=== PATIENT | female | born 1930 | race Caucasian/White ===

== ENCOUNTER 2018-12-01 14:21 | Emergency (ER) | payer MEDICARE ==
[~2018-12-01] VITALS: Ht 160 cm; Wt 46.3 kg
--- NOTE | 2018-12-01 14:41 | RAD ---
CT CODE STROKE HEAD WO Clinical indications: Altered mental status. Code stroke. COMPARISON: November 14, 2009 Technique: Noncontrast axial cross sectional scanning of the head was performed. PQRS compliance Statement One or more of the following individualized dose reduction techniques were utilized for this study: 1. Automated exposure control 2. Adjustment of the mA and/or kV according to patient size 3. Use of iterative reconstruction technique Findings: No acute intracranial hemorrhage or midline shift or mass-effect or hydrocephalus or extra-axial fluid collection is seen. No new focal hypodense area or sulci effacement is seen to indicate an acute infarct or edema radiographically. No skull fracture or pneumocephalus is seen. No opacification of the mastoid sinuses or the paranasal sinuses is seen. The maxillary sinuses are not completely seen in this study. Impression: No acute intracranial abnormality is seen. Note-This critical result was called to Dr. Miguel Neves in the emergency room at 2:37 PM on December 01, 2018. Electronically signed by: Axel Alvarez MD (12/01/2018 2:38 PM) [facility]
--- NOTE | 2018-12-01 15:04 | PHYS DOC ---
Adult General Chief Complaint Chief Complaint: ALTERED MENTAL STATUS HPI HPI 88-year-old female presents via EMS with altered mental status. Family tells me that the patient was acting normally this morning. She was on the phone talking to a [place] member in [place] when she began to tell the family members she wasn't feeling that well. She mentioned a couple times that she wasn't feeling very good. The family member called her brother who lives near the patient. He came to check on her and all of her vital signs were normal. He helped her get to bed. The patient's daughter came and found that she was not responding to commands. The patient would not speak. She was moving her extremities. For EMS and in the emergency room the patient will not follow verbal commands. She does spontaneously move all 4 extremities. She does spontaneously open and close her eyes. She mouths some words, but does not speak out loud. The patient is normally very healthy. She does not take any medications. She has no significant medical history. She normally walks 2 miles a day. Her last known well was around 1130am. Review of Systems Review of Systems Unable to perform due to not answering any questions. Allergies Allergies Allergies Coded Allergies Type Severity Reaction Last Updated Verified No Known Drug Allergies 12/01/18 No Physical Exam Physical Exam Constitutional: Well developed, well nourished, moderate acute distress, non- toxic appearance. [] HENT: Normocephalic, atraumatic, bilateral external ears normal, oropharynx moist, no oral exudates, nose normal. [] Eyes: PERRLA, EOMI, conjunctiva normal, no discharge. [] Neck: Normal range of motion, no tenderness, supple, no stridor. [] Cardiovascular:Heart rate regular rhythm, no murmur [] Lungs & Thorax: Bilateral breath sounds clear to auscultation [] Abdomen: Bowel sounds normal, soft, no tenderness, no masses, no pulsatile masses. [] Skin: Warm, dry, no erythema, no rash. [] Back: Unable to assess[] Extremities: No cyanosis, no clubbing, ROM intact, no edema. [] Neurologic: normal motor function, no focal deficits noted. [] Psychologic: unable to evaluate [] EKG EKG Sinus rhythm, rate 58, leftward axis, no ST elevations or depressions.[] Radiology/Procedures Radiology/Procedures [] Impressions: CT CODE STROKE HEAD WO Clinical indications: Altered mental status. Code stroke. COMPARISON: November 14, 2009 Technique: Noncontrast axial cross sectional scanning of the head was performed. PQRS compliance Statement One or more of the following individualized dose reduction techniques were utilized for this study: 1. Automated exposure control 2. Adjustment of the mA and/or kV according to patient size 3. Use of iterative reconstruction technique Findings: No acute intracranial hemorrhage or midline shift or mass-effect or hydrocephalus or extra-axial fluid collection is seen. No new focal hypodense area or sulci effacement is seen to indicate an acute infarct or edema radiographically. No skull fracture or pneumocephalus is seen. No opacification of the mastoid sinuses or the paranasal sinuses is seen. The maxillary sinuses are not completely seen in this study. Impression: No acute intracranial abnormality is seen. Note-This critical result was called to Dr. Wei Hatfield in the emergency room at 2:37 PM on December 01, 2018. Electronically signed by: Stacy Alvarez MD (12/01/2018 2:38 PM) [facility] DICTATED AND SIGNED BY: STACY ALVAREZ MD DATE: 12/01/18 1438 CC: WEI HATFIELD DO; BOWEN FLORES MD ~ CTA head and neck History:Aphasia, altered mental status Technique: After bolus of intravenous contrast, volumetric CT data acquisition was acquired of the head and neck. Multiplanar reconstruction images to include MIP and 3-D reconstruction images are submitted. Exposure: One or more of the following individualized dose reduction techniques were utilized for this examination: 1. Automated exposure control 2. Adjustment of the mA and/or kV according to patient size 3. Use of iterative reconstruction technique. Comparison: Head CT earlier the same day Any determination of stenosis is based on NASCET criteria. CTA head: Findings: There is some motion degradation. Both vertebral arteries constitute the basilar artery, dominant left vertebral artery. There is visualization of segments bilateral AICAs, PICAs, and superior cerebellar arteries. No significant posterior communicating arteries are visualized. There is likely tiny anterior communicating artery. There is visualization of the internal carotid arteries bilaterally at the skull base, atherosclerotic calcification carotid siphons bilaterally. No focal filling defect is identified of the larger intracranial vessels. No significant intracranial aneurysm is identified. Impression: 1. No focal filling defect is identified of the larger intracranial vessels. Neck CTA: Findings: Exam is degraded by motion. There are normal anatomic origins of the great vessels. No significant stenosis or flow limiting dissection flap is identified of the vertebral arteries on either side. There is some calcified plaque of the carotid bulbs bilaterally without significant focal stenosis. Accurate evaluation of the cervical internal carotid arteries is limited due to severe motion, grossly patent without obvious focal stenosis, limited evaluation for nonflow limiting dissection flap on this exam. There is some heterogeneity of somewhat enlarged thyroid gland bilaterally. There is multilevel cervical degenerative disc disease and spondylosis as well as facet degenerative change. Impression: 1. Exam is degraded by motion, especially limited evaluation of the cervical internal carotid arteries bilaterally, no focal vessel occlusion or obvious significant stenosis identified. FOR INTERNAL CODING PURPOSES Critical result: Findings discussed with WEI HATFIELD at 12/01/2018 4:22 PM. RESULT CODE: (C) Electronically signed by: Liu Zarate MD (12/01/2018 4:32 PM) [id number] DICTATED AND SIGNED BY: LIU ZARATE MD DATE: 12/01/181631 CC: WEI HATFIELD DO; BOWEN FLORES MD ~ Course & Med Decision Making Course & Med Decision Making Pertinent Labs and Imaging studies reviewed. (See chart for details) On arrival the patient was not responding to verbal commands. She was moving all extremities. She appeared to have equal strength in all 4 extremities. She was quite restless and agitated. She went straight to CT for head CT as a code stroke. This was negative for bleed. We had to place mittens on her to prevent her from pulling out her IVs or scratching herself. She continued to open her eyes spontaneously and move all 4 extremities with strength, but she would not r espond to our verbal commands. She appeared to be mouthing words, but was not making audible noise. Her mouthing words did not appear to be in answers to my questions. This did not appear to be consistent with a typical stroke pattern. Her GCS was 10, but the patient had no difficulty with her secretions. She was making purposeful movements, but not for commands. The patient's labs were unremarkable. Her urinalysis is unremarkable. A CT angiogram of the head and neck was performed. This was negative for significant occlusion. See official reports are more details. I spoke with the stroke neurologist at , Dr. Betancourt and she agreed that this did not look like a typical stroke presentation, but she wanted me to discuss tPA with the family as we were on the bubble of the 4.5 hour window. I discussed this with the family and they did not want to proceed with TPA unless the CTA showed a significant occlusion. He did not show an occlusion. No TPA was given. The family would prefer that the patient be transferred to . I again spoke with Dr. Betancourt and she accepted the patient for transfer to . She will go by ambulance. 48 minutes of critical care time was spent on this patient exclusive of other billable procedures. [] Dragon Disclaimer Dragon Disclaimer This electronic medical record was generated, in whole or in part, using a voice recognition dictation system. Departure Departure: Impression: Primary Impression: Encephalopathy acute Disposition: 02 XFER S[facility]-TRM HOSP Condition: GUARDED Referrals: BOWEN FLORES MD (PCP) WEI HATFIELD DO Dec 01, 2018 15:04
[2018-12-01 15:31] LABS: HEMATOCRIT 38.4 % (36.0-47.0); HEMOGLOBIN 12.9 g/dL (12.0-15.5); RED BLOOD COUNT 4.09 x10^6/uL (3.50-5.40); RED CELL DISTRIBUTION WIDTH 13.9 % (11.5-14.5); WHITE BLOOD COUNT 10.3 x10^3/uL (4.0-11.0)
[2018-12-01 15:36] LABS: CALCIUM 9.3 mg/dL (8.5-10.1); CREATININE 0.6 mg/dL (0.6-1.0); GFR 94.3
[2018-12-01] MEDS ORDERED: IOHEXOL 350 MG/ML 100 ML VIAL. IV ONE (15:45)
[2018-12-01 15:52] LABS: BILIRUBIN,URINE NEG (NEG); CLARITY,URINE HAZY; COLOR,URINE STRAW; GLUCOSE,URINE NEG (NEG); NITRITE,URINE NEG (NEG); UROBILINOGEN,URINE 0.2 mg/dL (0.2 mg/dL)
[2018-12-01 15:53] LABS: AMORPHOUS SEDIMENT,UR PRESENT /HPF; BACTERIA,URINE FEW /HPF (0-FEW); RBC,URINE 0 /HPF (0-2); SQUAMOUS EPITHELIAL CELL,UR OCC /LPF; WBC,URINE OCC /HPF (0-4)
--- NOTE | 2018-12-01 16:15 | EKG ---
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
[2018-12-01] MEDS ORDERED: IV NORMAL SALINE 500ML 500 ML ONE (16:34)
--- NOTE | 2018-12-01 16:35 | RAD ---
CTA head and neck History:Aphasia, altered mental status Technique: After bolus of intravenous contrast, volumetric CT data acquisition was acquired of the head and neck. Multiplanar reconstruction images to include MIP and 3-D reconstruction images are submitted. Exposure: One or more of the following individualized dose reduction techniques were utilized for this examination: 1. Automated exposure control 2. Adjustment of the mA and/or kV according to patient size 3. Use of iterative reconstruction technique. Comparison: Head CT earlier the same day Any determination of stenosis is based on NASCET criteria. CTA head: Findings: There is some motion degradation. Both vertebral arteries constitute the basilar artery, dominant left vertebral artery. There is visualization of segments bilateral AICAs, PICAs, and superior cerebellar arteries. No significant posterior communicating arteries are visualized. There is likely tiny anterior communicating artery. There is visualization of the internal carotid arteries bilaterally at the skull base, atherosclerotic calcification carotid siphons bilaterally. No focal filling defect is identified of the larger intracranial vessels. No significant intracranial aneurysm is identified. Impression: 1. No focal filling defect is identified of the larger intracranial vessels. Neck CTA: Findings: Exam is degraded by motion. There are normal anatomic origins of the great vessels. No significant stenosis or flow limiting dissection flap is identified of the vertebral arteries on either side. There is some calcified plaque of the carotid bulbs bilaterally without significant focal stenosis. Accurate evaluation of the cervical internal carotid arteries is limited due to severe motion, grossly patent without obvious focal stenosis, limited evaluation for nonflow limiting dissection flap on this exam. There is some heterogeneity of somewhat enlarged thyroid gland bilaterally. There is multilevel cervical degenerative disc disease and spondylosis as well as facet degenerative change. Impression: 1. Exam is degraded by motion, especially limited evaluation of the cervical internal carotid arteries bilaterally, no focal vessel occlusion or obvious significant stenosis identified. FOR INTERNAL CODING PURPOSES Critical result: Findings discussed with WEI HATFIELD at 12/01/2018 4:22 PM. RESULT CODE: (C) Electronically signed by: Moise Gonzalez MD (12/01/2018 4:32 PM) [id number]
[2018-12-01 17:00] VITALS: BP 165/64
[2018-12-01 17:01] LABS: AMPHETAMINE/METHAMPHETAMINE NEG (NEG); BARBITURATES NEG (NEG); BENZODIAZEPINES NEG (NEG); CANNABINOIDS NEG (NEG); COCAINE NEG (NEG); METHADONE NEG (NEG); OPIATES NEG (NEG); PHENCYCLIDINE NEG (NEG)
[2018-12-01] MEDS ORDERED: IV NORMAL SALINE 500ML 500 ML IV ONE (17:30)
== END 2018-12-01 17:15 | disposition short-term general hospital (02) ==
LOC: ER 14:21
DX: G93.40 Encephalopathy, unspecified (principal)
CPT/HCPCS: 36415; 70450; 70496; 70498; 80048; 80307; 81001; 85027; 85610; 85730; 93005; 96374; 96376; 99291; J2060; J7040; Q9967

== ENCOUNTER 2019-08-09 14:20 | Emergency (ER) | payer MEDICARE ==
[~2019-08-09] VITALS: Ht 160 cm; Wt 45.7 kg
--- NOTE | 2019-08-09 14:46 | PHYS DOC ---
Past History Past Medical History: No Pertinent History Past Surgical History: Cholecystectomy Alcohol Use: None Drug Use: None General Adult EDM: Chief Complaint: MECHANICAL FALL HPI: HPI: 89-year-old female presents after fall. She was out for her daily walk when she felt a little overheated. She remembers leaning on a vehicle. When she started walking again she had the sensation that someone was pushing her from behind. She does not believe there was anyone around her. This caused her to lose her balance and she fell forward. She hit her forehead on the ground as well as her left shoulder. Her primary complaints are the laceration on her forehead and the left shoulder pain. She tells me that she is not on any daily medications. She is not requesting any pain medication. She has no other complaints at this time. Review of Systems: Review of Systems: Constitutional: Denies fever or chills Eyes: Denies change in visual acuity HENT: Denies nasal congestion or sore throat Respiratory: Denies cough or shortness of breath Cardiovascular: Denies chest pain or edema GI: Denies abdominal pain, nausea, vomiting, bloody stools or diarrhea : Denies dysuria Musculoskeletal: Denies back pain or joint pain Integument: Laceration forehead, abrasion left lateral shoulder, abrasion right hand Neurologic: Denies headache, focal weakness or sensory changes Endocrine: Denies polyuria or polydipsia Lymphatic: Denies swollen glands Psychiatric: Denies depression or anxiety Heart Score: Risk Factors: Risk Factors: DM, Current or recent (<one month) smoker, HTN, HLP, family history of CAD, obesity. Risk Scores: Score 0 - 3: 2.5% MACE over next 6 weeks - Discharge Home Score 4 - 6: 20.3% MACE over next 6 weeks - Admit for Clinical Observation Score 7 - 10: 72.7% MACE over next 6 weeks - Early Invasive Strategies Allergies: Allergies: Allergies Coded Allergies Type Severity Reaction Last Updated Verified No Known Drug Allergies 12/01/18 No Physical Exam: PE: Constitutional: Well developed, well nourished, no acute distress, non-toxic appearance. [] HENT: Normocephalic, atraumatic, bilateral external ears normal, oropharynx moist, no oral exudates, nose normal. [] Eyes: PERRLA, EOMI, conjunctiva normal, no discharge. [] Neck: Normal range of motion, no tenderness, supple, no stridor. [] Cardiovascular:Heart rate regular rhythm, no murmur [] Lungs & Thorax: Bilateral breath sounds clear to auscultation [] Abdomen: Bowel sounds normal, soft, no tenderness, no masses, no pulsatile masses. [] Skin: 1.5 cm laceration of the forehead with surrounding ecchymosis, abrasion left lateral shoulder, abrasion right hand [] Back: No tenderness, no CVA tenderness. [] Extremities: No tenderness, no cyanosis, no clubbing, ROM intact, no edema. [] Neurologic: Alert and oriented X 3, normal motor function, normal sensory function, no focal deficits noted. [] Psychologic: Affect normal, judgement normal, mood normal. [] Current Patient Data: Vital Signs: Vital Signs Date Time Temp Pulse Resp B/P (MAP) Pulse Ox O2 Delivery O2 Flow Rate FiO2 08/09/19 14:32 99.6 68 18 122/47 (72) 98 Room Air EKG: EKG: [] Radiology/Procedures: Radiology/Procedures: [] Impressions: CT head without contrast PQRS statement: CT scans at this facility use dose reduction including either automated exposure control, iterative reconstructions, and /or weight based radiation dosing via mA and kV modification when appropriate to reduce radiation dose to as low as reasonably achievable. HISTORY: Fall. COMPARISON: CT head December 01, 2018. FINDINGS: No intracranial hemorrhage, mass, hydrocephalus, extra-axial fluid collections or infarction. Calcified plaque of the cavernous carotid arteries and vertebral arteries intracranially. No acute ischemic change evident. Orbits, mastoids and bones are unremarkable. There are a few scattered lucent bony lesions of the calvarium stable back to 2009 CT imaging considered benign. IMPRESSION: No acute abnormality. Stable exam. Electronically signed by: Devora Zarate MD (08/09/2019 3:09 PM) [id number] DICTATED AND SIGNED BY: DEVORA ZARATE MD DATE: 08/09/19 1509 CC: WEI HATFIELD DO; BOWEN FLORES MD ~ CHEST AP ONLY Clinical Indication: Fall Comparison: CT chest abdomen and pelvis with contrast February 15, 2013. Findings: Atherosclerotic aortic arch. Cardiac size is normal. Lungs are clear. There is no pneumothorax. No pleural effusion is appreciated. There is acute fracture of the proximal left humerus, please refer to dedicated shoulder radiographs for further information. Left convexity lumbar scoliosis, incompletely imaged. IMPRESSION: No acute cardiopulmonary process. Electronically signed by: Barrett Jones MD (08/09/2019 3:19 PM) [id number] DICTATED AND SIGNED BY: BARRETT JONES MD DATE: 08/09/19 1519 CC: WEI HATFIELD DO; BOWEN FLORES MD ~ 2 views left shoulder 08/09/2019 2:34 PM Indication: Pain following fall Comparison: Chest radiograph, earlier FINDINGS: There is a left proximal humeral fracture involving the surgical neck of the humerus. Fracture appears relatively nondisplaced. No dislocation is seen. The acromioclavicular joint remains intact.. IMPRESSION: Acute, traumatic proximal left humeral fracture Electronically signed by: Julio Ruiz MD (08/09/2019 3:21 PM) [id number] DICTATED AND SIGNED BY: JULIO RUIZ MD DATE: 08/09/19 1521 CC: WEI HATFIELD DO; BOWEN FLORES MD ~ Course & Med Decision Making: Course & Med Decision Making Pertinent Labs and Imaging studies reviewed. (See chart for details) The patient's head CT is negative for acute findings. She does have a broken proximal left humerus. Will place her in a shoulder immobilizer and refer her to her primary care physician and orthopedics. I was able to repair the patient's forehead laceration. See note below for more details. The patient is doing well considering. I believe that she can be discharged home. She lives with her son who can help take care of her. I will discharge her with a prescription for [place] for her pain. She is stable for discharge at this time. [] Dragon Disclaimer: [place] Disclaimer: This electronic medical record was generated, in whole or in part, using a voice recognition dictation system. Laceration Repair Lac Repair Indication: []1.5 centimeter linear laceration of the forehead. Procedure: I obtained verbal consent from the patient for suture repair of her forehead laceration. The wound was anesthetized with let gel. He was irrigated thoroughly with normal saline. I used an additional 1 cc of 1% lidocaine with epinephrine for anesthesia. Once good anesthesia was achieved, I repaired the laceration with two 5-0 Ethilon sutures in interrupted fashion. The skin was well approximated. Bleeding was controlled. Total repaired wound length: 1.5 cm Other Items: None The patient tolerated the procedure well. Complications: None Departure Departure: Impression: Primary Impression: Left humeral fracture Qualified Codes: S42.292A - Other displaced fracture of upper end of left humerus, initial encounter for closed fracture Additional Impressions: Laceration of face Qualified Codes: S01.81XA - Laceration without foreign body of other part of head, initial encounter Multiple abrasions Disposition: HOME, SELF-CARE Condition: STABLE Referrals: BOWEN FLORES MD (PCP) Patient Instructions: Facial Laceration, [id number], Shoulder Fracture Scripts Hydrocodone Bit/Acetaminophen (NORCO 5-325 TABLET) 1 Each Tablet 1 TAB PO PRN Q6HRS PRN for PAIN, #14 TAB 0 Refills Prov: WEI HATFIELD DO 08/09/19 WEI HATFILED DO Aug 09, 2019 14:46
[2019-08-09 15:07] LABS: BASO # 0.1 x10^3/uL (0.0-0.2); BASO % 1 % (0-3); EOS # 0.1 x10^3/uL (0.0-0.7); EOS % 1 % (0-3); HEMATOCRIT 34.2 % (36.0-47.0); HEMOGLOBIN 11.3 g/dL (12.0-15.5); LYMPH % 28 % (24-48); MEAN CORPUSCULAR HEMOGLOBIN 31 pg (25-35); MEAN CORPUSCULAR HGB CONC 33 g/dL (31-37); MEAN CORPUSCULAR VOLUME 94 fL (79-100); MONO # 0.5 x10^3/uL (0.0-1.1); MONO % 7 % (0-9); NEUT # 4.6 x10^3uL (1.8-7.7); NEUT % 64 % (31-73); PLATELET COUNT 189 x10^3/uL (140-400); RED BLOOD COUNT 3.66 x10^6/uL (3.50-5.40); RED CELL DISTRIBUTION WIDTH 14.5 % (11.5-14.5); WHITE BLOOD COUNT 7.2 x10^3/uL (4.0-11.0)
--- NOTE | 2019-08-09 15:12 | RAD ---
CT head without contrast PQRS statement: CT scans at this facility use dose reduction including either automated exposure control, iterative reconstructions, and /or weight based radiation dosing via mA and kV modification when appropriate to reduce radiation dose to as low as reasonably achievable. HISTORY: Fall. COMPARISON: CT head December 01, 2018. FINDINGS: No intracranial hemorrhage, mass, hydrocephalus, extra-axial fluid collections or infarction. Calcified plaque of the cavernous carotid arteries and vertebral arteries intracranially. No acute ischemic change evident. Orbits, mastoids and bones are unremarkable. There are a few scattered lucent bony lesions of the calvarium stable back to 2009 CT imaging considered benign. IMPRESSION: No acute abnormality. Stable exam. Electronically signed by: Reynold Zarate MD (08/09/2019 3:09 PM) [id number]
[2019-08-09 15:15] LABS: CALCIUM 8.5 mg/dL (8.5-10.1); CREATININE 0.7 mg/dL (0.6-1.0); GFR 78.8; POTASSIUM 3.7 mmol/L (3.5-5.1)
[2019-08-09 15:21] LABS: ALBUMIN 3.4 g/dL (3.4-5.0); ALBUMIN/GLOBULIN RATIO 1.3 (1.0-1.7); TOTAL BILIRUBIN 0.4 mg/dL (0.2-1.0); TOTAL PROTEIN 6.1 g/dL (6.4-8.2)
[2019-08-09] MEDS: LIDOCAINE/EPI/TETRACAINE TOPICAL GEL 3 ML. TP ONE (15:21)
--- NOTE | 2019-08-09 15:22 | RAD ---
CHEST AP ONLY Clinical Indication: Fall Comparison: CT chest abdomen and pelvis with contrast February 15, 2013. Findings: Atherosclerotic aortic arch. Cardiac size is normal. Lungs are clear. There is no pneumothorax. No pleural effusion is appreciated. There is acute fracture of the proximal left humerus, please refer to dedicated shoulder radiographs for further information. Left convexity lumbar scoliosis, incompletely imaged. IMPRESSION: No acute cardiopulmonary process. Electronically signed by: Barrett Jones MD (08/09/2019 3:19 PM) [id number]
--- NOTE | 2019-08-09 15:24 | RAD ---
2 views left shoulder 08/09/2019 2:34 PM Indication: Pain following fall Comparison: Chest radiograph, earlier FINDINGS: There is a left proximal humeral fracture involving the surgical neck of the humerus. Fracture appears relatively nondisplaced. No dislocation is seen. The acromioclavicular joint remains intact.. IMPRESSION: Acute, traumatic proximal left humeral fracture Electronically signed by: Julio Ruiz MD (08/09/2019 3:21 PM) [id number]
[2019-08-09] MEDS ORDERED: HYDR-3165 PO (15:32)
[2019-08-09 16:22] VITALS: BP 132/64
--- NOTE | 2019-08-09 17:45 | EKG ---
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
== END 2019-08-09 16:07 | disposition home or self-care (01) ==
LOC: ER 14:20
DX: S42.292A Other displaced fracture of upper end of left humerus, initial encounter for closed fracture (principal); S01.81XA Laceration without foreign body of other part of head, initial encounter; W18.39XA Other fall on same level, initial encounter; Y93.89 Activity, other specified; Y92.89 Other specified places as the place of occurrence of the external cause; Y99.8 Other external cause status
CPT/HCPCS: 29105; 36415; 70450; 71045; 73030; 80053; 84484; 85025; 93005; 99285-25